=== PATIENT | female | born 1960 | race Caucasian/White ===

== ENCOUNTER 2021-08-08 04:23 | Observation (INO) ==
[2021-08-08] MEDS ORDERED: Perflutren Lipid Microsphere 1.3 ML in 0.9 % Sodium Chloride 8.7 ML IVP PRN (09:16)
[2021-08-08] MEDS ORDERED: *HR* Heparin 5,000 UNIT/ML VIAL IVP ONE (09:27)
[2021-08-08] MEDS ORDERED: *HR* Heparin 5,000 UNIT/ML VIAL IVP PRN ×2 (09:27)
[2021-08-08] MEDS ORDERED: Heparin 25,000UNIT/250ML 1/2NS 25,000 UNIT/250 ML IV.SOLN IVC SCH (09:30)
[2021-08-08 09:47] LABS: Hematocrit 40.4 % (35.3-44.9); Hemoglobin 13.2 g/dL (11.5-15.4); Mean Corpuscular HGB Conc 32.7 g/dL (31.6-35.5); Mean Corpuscular Hemoglobin 28.6 pg (28.0-33.3); Mean Corpuscular Volume 87.4 fL (83.0-100.0); Platelet Count 397 K/mcL (140-400); Red Blood Count 4.62 M/mcL (3.82-4.97); Red Cell Distribution Width 12.3 % (11.5-14.5)
[2021-08-08 09:49] LABS: White Blood Count 8.8 K/mcL (4.3-11.1)
[2021-08-08] MEDS: *HR* Enoxaparin 100 MG/ML SYRINGE SQ SCH ×2 (09:53→17:32)
[2021-08-08 10:07] LABS: Magnesium 2.3 mg/dL (1.6-2.6); Troponin I < 0.03 ng/mL (< 0.04)
[2021-08-08] MEDS: DilTIAZem 50 MG/50 ML IV.SOLN IVC SCH ×2 (10:10→16:37)
[2021-08-08] MEDS ORDERED: Ibuprofen 400 MG TABLET PO PRN (10:52)
[2021-08-08] MEDS ORDERED: Naloxone 0.4 MG/ML INJ IVP PRN (10:52)
[2021-08-08] MEDS ORDERED: lisinopriL 10 MG TABLET PO SCH (12:30)
[2021-08-09 02:23] LABS: Basophils % 0.4 %; Eosinophils # 0.2 K/mcL (0.0-0.6); Eosinophils % 2.2 %; Hematocrit 39.7 % (35.3-44.9); Hemoglobin 12.9 g/dL (11.5-15.4); Immature Granulocytes % 0.9 % (0-4); Lymphocytes # 2.3 K/mcL (0.6-4.6); Lymphocytes % 21.9 %; Mean Corpuscular HGB Conc 32.5 g/dL (31.6-35.5); Mean Corpuscular Hemoglobin 28.8 pg (28.0-33.3); Mean Corpuscular Volume 88.6 fL (83.0-100.0); Mean Platelet Volume 10.2 fL (9.4-12.4); Monocytes # 0.8 K/mcL (0.0-1.3); Monocytes % 7.7 %; Platelet Count 361 K/mcL (140-400); Red Blood Count 4.48 M/mcL (3.82-4.97); Red Cell Distribution Width 12.5 % (11.5-14.5); Segmented Neutrophils % 66.9 %; White Blood Count 10.4 K/mcL (4.3-11.1)
[2021-08-09 02:46] LABS: Alanine Aminotransferase 33 Units/L (7-52); Albumin 3.6 g/dL (3.5-5.7); Albumin/Globulin Ratio 1.1 (1.1-2.2); Alkaline Phosphatase 121 Units/L (34-104); Aspartate Amino Transferase 21 Units/L (13-39); BUN/Creatinine Ratio 20 (6-26); Bilirubin,Total 0.5 mg/dL (0.3-1.0); Blood Urea Nitrogen 17 mg/dL (6-20); Calcium 9.1 mg/dL (8.6-10.3); Carbon Dioxide 24 mEq/L (23-29); Chloride 103 mEq/L (98-107); Cholesterol 129 mg/dL (< 200); Globulin 3.3 g/dL (2.4-3.5); Glucose 92 mg/dL (70-105); HDL Cholesterol 32 mg/dL (40-59); LDL Cholesterol,Calculated 69 mg/dL (< 100); Magnesium 2.2 mg/dL (1.6-2.6); Osmolality,Calculated 285 (280-300); Potassium 4.1 mEq/L (3.5-5.1); Sodium 137 mEq/L (136-145); Total Protein 6.9 g/dL (6.4-8.9); Triglycerides 139 mg/dL (< 150); eGFR For African Americans > 60 (> 60); eGFR For Non-African Americans > 60 (> 60)
[2021-08-09] MEDS: *HR* Enoxaparin 100 MG/ML SYRINGE SQ SCH (06:16)
[2021-08-09] MEDS: Loratadine 10 MG TABLET PO SCH (08:06)
[2021-08-09] MEDS: Apixaban 5 MG TABLET PO SCH (21:22)
[2021-08-09 23:42] VITALS: O2SAT 98
[2021-08-10 05:08] LABS: Hematocrit 37.2 % (35.3-44.9); Hemoglobin 12.2 g/dL (11.5-15.4); Mean Corpuscular HGB Conc 32.8 g/dL (31.6-35.5); Mean Corpuscular Hemoglobin 28.7 pg (28.0-33.3); Mean Corpuscular Volume 87.5 fL (83.0-100.0); Platelet Count 365 K/mcL (140-400); Red Blood Count 4.25 M/mcL (3.82-4.97); Red Cell Distribution Width 12.1 % (11.5-14.5); White Blood Count 8.7 K/mcL (4.3-11.1)
[2021-08-10 05:27] LABS: BUN/Creatinine Ratio 24 (6-26); Blood Urea Nitrogen 19 mg/dL (6-20); Carbon Dioxide 27 mEq/L (23-29); Chloride 103 mEq/L (98-107); Glucose 97 mg/dL (70-105); Osmolality,Calculated 284 (280-300); Potassium 4.2 mEq/L (3.5-5.1); Sodium 136 mEq/L (136-145); eGFR For African Americans > 60 (> 60); eGFR For Non-African Americans > 60 (> 60)
[2021-08-10 07:11] VITALS: BP 105/65; PULSE 94; TEMP 98.3
[2021-08-10] MEDS: Loratadine 10 MG TABLET PO SCH (08:52)
[2021-08-10] MEDS: Apixaban 5 MG TABLET PO SCH (08:53)
[2021-08-10] MEDS ORDERED: DilTIAZem CD (24hr) 120 MG CAP.ER.24H PO SCH (09:00)
[2021-08-10] MEDS ORDERED: *HR* Warfarin 3 MG TABLET PO ONE (18:00)
== END 2021-08-10 12:40 | disposition home or self-care (01) ==
LOC: 3NENU → SUATTDRO 08:10
PROVIDERS: ADMIT Internal Medicine; ATTEND Family Medicine